=== PATIENT | female | born 1980 | race Two or more races ===

== ENCOUNTER 2017-05-24 15:24 | Emergency (ER) | payer OTHER ==
[2017-05-24] MEDS ORDERED: CLINDAMYCIN HCL 150 MG CAPSULE PO ONE (17:08)
[2017-05-24] MEDS ORDERED: IBUPROFEN 800 MG TABLET PO ONE (17:08)
--- NOTE | 2017-05-24 17:11 | ER Document Report ---
HPI - HPI Patient complains to provider of: Left breast Onset: Other - 3 days Onset/Duration: Persistent Quality of pain: Achy Pain Level: 2 Context: Patient states she has a crusted skin lesion that is tender to her nipple of her left breast. Patient is not currently breast-feeding. Patient denies any personal or family history of breast cancer. Patient denies any fever history of MRSA. Associated Symptoms: Other. denies: Fever Exacerbated by: Other - Palpation Relieved by: Denies Similar symptoms previously: No Recently seen / treated by doctor: No - ROS ROS below otherwise negative: Yes Systems Reviewed and Negative: Yes All other systems reviewed and negative - CONSTITUTIONAL Constitutional: DENIES: Fever, Chills - DERM Notes: Crusted wound to the nipple of left breast Past Medical History - General Information source: Patient - Social History Smoking Status: Never Smoker Frequency of alcohol use: None Drug Abuse: None Occupation: None Lives with: Family Family History: Reviewed & Not Pertinent - Medical History Medical History: Negative Surgical Hx: Negative Vertical Provider Document - CONSTITUTIONAL Agree With Documented VS: Yes Exam Limitations: No Limitations General Appearance: WD/WN, No Apparent Distress - INFECTION CONTROL TRAVEL OUTSIDE OF THE [place] IN LAST 30 DAYS: No - HEENT HEENT: Atraumatic, Normocephalic - NECK Neck: Normal Inspection - RESPIRATORY Respiratory: Breath Sounds Normal, No Respiratory Distress O2 Sat by Pulse Oximetry: 99 - CARDIOVASCULAR Cardiovascular: Regular Rate, Regular Rhythm Pulses: Normal: Radial - BACK Back: Normal Inspection - MUSCULOSKELETAL/EXTREMETIES Musculoskeletal/Extremeties: MAEW - NEURO Level of Consciousness: Awake, Alert, Appropriate Motor/Sensory: No Motor Deficit - DERM Integumentary: Warm, Dry Adult Front & Back Diagram: 1 - Tender crusted indurated lesion to lateral aspect of left nipple. No drainable abscess, no cellulitis. Course - Vital Signs Vital signs: Temp Pulse Resp BP Pulse Ox 98.9 F 73 16 118/79 99 05/24/17 15:53 05/24/17 15:53 05/24/17 15:53 05/24/17 15:53 05/24/17 15:53 Discharge - Discharge Clinical Impression: Breast wound Qualifiers: Encounter type: initial encounter Laterality: left Qualified Code(s): S21.002A - Unspecified open wound of left breast, initial encounter Condition: Stable Disposition: HOME, SELF-CARE Instructions: Anti-Inflammatory Medication ([facility]), Clindamycin ([facility]), Warm Packs ([facility]) Additional Instructions: Return immediately for any new or worsening symptoms Followup with your primary care provider for a repeat breast exam. Call Thursday for an appointment time Prescriptions: Clindamycin HCl [Cleocin Hcl] 300 mg PO QID #28 capsule Naproxen [Naprosyn 250 Nmg Tablet] 1 tab PO BID #14 tablet Referrals: [facility] [Provider Group] - 05/26/17
[2017-05-24 17:58] VITALS: BP 117/71
== END 2017-05-24 18:05 | disposition home or self-care (01) ==
LOC: ER 15:24
DX: S21.002A Unspecified open wound of left breast, initial encounter (principal); L98.9 Disorder of the skin and subcutaneous tissue, unspecified; X58.XXXA Exposure to other specified factors, initial encounter
CPT/HCPCS: 99283